=== PATIENT | female | born 1960 | race Caucasian/White ===

== ENCOUNTER 2020-09-07 12:34 | Emergency (ER) | payer OTHER ==
[~2020-09-07] VITALS: Ht 162.6 cm; Wt 67.0 kg
[2020-09-07] MEDS ORDERED: ONDANSETRON 2MG/ML, 2ML IVPush ONE (14:00)
[2020-09-07] MEDS ORDERED: SODIUM CHLORIDE 0.9% 1,000ML IVBOLUS ONE (14:00)
--- NOTE | 2020-09-07 14:48 | NUR ---
CT IS WAITING FOR RENAL FUNCTION LAB RESULTS
[2020-09-07] MEDS ORDERED: ONDANSETRON 2MG/ML, 2ML ONE (14:53)
[2020-09-07] MEDS ORDERED: MORPHINE SULFATE 4 MG/ML, 1ML ONE ×2 (14:53→16:09)
[2020-09-07] MEDS: MORPHINE SULFATE 4 MG/ML, 1ML IVPush PRN ×2 (14:55→16:11)
[2020-09-07 15:07] LABS: BASOPHILS % (AUTO) 1 % (0-1); EOSINOPHILS % (AUTO) 2 % (1-7); LYMPHOCYTES % (AUTO) 25 % (22-44); MEAN CORPUSCULAR HEMOGLOBIN 37.2 pg (27.0-34.8); MEAN CORPUSCULAR HGB CONC 34.9 g/dL (32.4-35.8); MEAN PLATELET VOLUME 10.2 fL (7.4-10.4); MONOCYTES % (AUTO) 14 % (2-9); NEUTROPHILS % (AUTO) 58 % (42-75); PLATELET COUNT 188 x10^3/uL (130-400); RED BLOOD COUNT 4.08 x10^6/uL (3.82-5.3)
[2020-09-07 15:10] LABS: INTERNATIONAL NORMALIZED RATIO 1.07 (0.93-1.1); PROTHROMBIN TIME 11.4 Seconds (9.6-11.5)
[2020-09-07 15:12] LABS: ALBUMIN 3.4 g/dL (3.4-5.0); ANION GAP 7 mmol/L (5-15); CALCIUM 9.4 mg/dL (8.5-10.1); CHLORIDE 103 mmol/L (98-107)
[2020-09-07 15:16] LABS: ALANINE AMINOTRANSFERASE 68 U/L (12-78); ALKALINE PHOSPHATASE 158 U/L (45-117); BILIRUBIN,TOTAL 1.1 mg/dL (0.2-1.0); CREATININE 0.54 mg/dL (0.55-1.02)
[2020-09-07 15:30] LABS: MICROSCOPIC INDICATED
[2020-09-07] MEDS ORDERED: OMNIPAQUE 350 MG/ML, 100ML BOTTLE ONE (16:02)
[2020-09-07 16:13] VITALS: BP 130/78
[2020-09-07] MEDS ORDERED: CEFTRIAXONE 1,000 MG in DEXTROSE 5% 50 ML IVPB ONE (16:30)
[2020-09-07] MEDS ORDERED: CHLORDIAZEPOXIDE 25 MG CAPSULE PO ONE (16:30)
[2020-09-07] MEDS ORDERED: LORazepam 1MG TABLET PO ONE (17:30)
[2020-09-07] MEDS ORDERED: LORazepam 1MG TABLET ONE (17:34)
== END 2020-09-07 17:55 ==
LOC: ED 14:17
DX: N30.01 Acute cystitis with hematuria (principal); R10.31 Right lower quadrant pain; F10.139 Alcohol abuse with withdrawal, unspecified; Y90.0 Blood alcohol level of less than 20 mg/100 ml; Z88.5 Allergy status to narcotic agent
CPT/HCPCS: 36415; 71045; 74177; 80053; 80320; 81001; 83690; 85025; 85610; 87086; 96361; 96365; 96375; 96376; 99285; J0696; J2270; J2405; J7030; Q9967; G0480